=== PATIENT | female | born 1985 | race African-American/Black ===

== ENCOUNTER 2022-07-13 08:35 | Emergency (ER) | payer MEDICAID ==
[~2022-07-13] VITALS: Ht 160 cm; Wt 59.0 kg
[2022-07-13 08:40] VITALS: BP 132/70
[2022-07-13] MEDS ORDERED: ACETAMINOPHEN 325MG TABLET PO ONE (09:00)
[2022-07-13] MEDS ORDERED: ACET-2708 MT (11:06)
== END 2022-07-13 11:40 | disposition home or self-care (01) ==
LOC: ER 08:51
DX: S90.01XA Contusion of right ankle, initial encounter (principal); Z88.1 Allergy status to other antibiotic agents; Z13.9 Encounter for screening, unspecified; W18.30XA Fall on same level, unspecified, initial encounter; Y93.01 Activity, walking, marching and hiking; Y92.89 Other specified places as the place of occurrence of the external cause; Y99.8 Other external cause status
CPT/HCPCS: 29515; 73590; 73610; 99284

== ENCOUNTER 2022-08-08 14:53 | Emergency (ER) | payer MEDICAID ==
[~2022-08-08] VITALS: Ht 170.2 cm; Wt 76.0 kg
[~2022-08-08 14:53] MED LIST: ACET-2708 MT
[2022-08-08 15:07] VITALS: BP 140/90
[2022-08-08] MEDS ORDERED: ONDANSETRON 4MG ODT PO STA (16:33)
[2022-08-08] MEDS ORDERED: KETOROLAC 30MG/ML VIAL IM STA (16:33)
[2022-08-08 16:58] LABS: CLARITY URINE TURBID (CLEAR); COLOR URINE DARK YELLOW (YELLOW); KETONES URINE 2+ (NEGATIVE); LEUKOCYTE ESTERASE URINE 1+ (NEGATIVE); NITRITE URINE NEGATIVE (NEGATIVE); OCCULT BLOOD URINE TRACE (NEGATIVE); PH URINE 5.5 (4.5-8.0); PROTEIN URINE 1+ (NEGATIVE); SPECIFIC GRAVITY URINE 1.034 (1.005-1.030)
[2022-08-08 17:00] LABS: BASOPHILS % 0.4 % (0.0-2.0); EOSINOPHILS % 0.6 % (0.0-5.0); HEMATOCRIT. 45.3 % (36.0-48.0); HEMOGLOBIN. 14.4 g/dL (12.0-16.0); LYMPHOCYTES % 23.8 % (20.0-50.0); MEAN CORPUSCULAR HEMOGLOBIN 28.4 pg (28.0-32.0); MEAN CORPUSCULAR VOLUME 89.4 fL (81.0-99.0); MEAN PLATELET VOLUME 10.4 fl (7.4-10.4); MONOCYTES % 9.7 % (2.0-8.0); NEUTROPHILS % 65.5 % (40.0-76.0); PLATELET 224 x1000/uL (130-400); RED BLOOD CELL COUNT 5.07 mill/uL (4.2-5.4); RED CELL DISTRIBUTION WIDTH 14.1 % (11.6-14.6)
[2022-08-08 17:18] LABS: CHLORIDE 106 mEq/L (98-107)
[2022-08-08 17:23] LABS: *AMPHETAMINES SCREEN URINE NEGATIVE (NEGATIVE); *BARBITURATES SCREEN URINE NEGATIVE (NEGATIVE); *BENZODIAZEPINES SCREEN URINE NEGATIVE (NEGATIVE); METHADONE URINE SCREEN NEGATIVE (NEGATIVE); OPIATES URINE SCREEN NEGATIVE (NEGATIVE); PHENCYCLIDINE URINE SCREEN NEGATIVE (NEGATIVE)
[2022-08-08 17:26] LABS: ETHANOL BLOOD < 10 mg/dL
[2022-08-08 17:30] LABS: *COCAINE SCREEN URINE PRESUMTIVE POSITIVE (NEGATIVE); CANNABINOID URINE SCREEN PRESUMTIVE POSITIVE (NEGATIVE)
[2022-08-08] MEDS ORDERED: NAPR-681 PO (17:45)
[2022-08-08] MEDS ORDERED: SULF1TAB48 PO (17:45)
== END 2022-08-08 18:09 | disposition home or self-care (01) ==
LOC: ER 15:02
DX: F14.10 Cocaine abuse, uncomplicated (principal); N39.0 Urinary tract infection, site not specified; M79.10 Myalgia, unspecified site; Z88.1 Allergy status to other antibiotic agents; Z88.3 Allergy status to other anti-infective agents
CPT/HCPCS: 36415; 80053; 80305; 80307; 80320; 80329; 81003; 81025; 83690; 85025; 96372; 99283; J1885; Q0162; G0480